=== PATIENT | male | born 1980 | race African-American/Black ===

== ENCOUNTER 2017-11-17 13:43 | Emergency (ER) | payer OTHER | END 2017-11-17 14:25 | disposition home or self-care (01) | LOC: ER 13:43 | DX: R11.0 Nausea (principal); E11.9 Type 2 diabetes mellitus without complications; E78.00 Pure hypercholesterolemia, unspecified; I10 Essential (primary) hypertension; G89.29 Other chronic pain | CPT/HCPCS: 99283 ==